=== PATIENT | male | born 1940 | race Caucasian/White ===

== ENCOUNTER → 2017-03-31 | Outpatient (CLI) | payer OTHER ==
--- NOTE | 2017-03-31 10:21 | DIAGNOSTIC IMAGING REPORT ---
RENAL ULTRASOUND HISTORY: R32 Urinary [id number] Renal mass, left latex allergyU COMPARISON: Abdominal MRI 04/01/2016. FINDINGS: Right kidney: 8.8 cm. No hydronephrosis. Multiple cysts are again noted. There are 2 similar-appearing cyst within the upper pole measuring 2.1 cm. These demonstrate septations. There is a smaller cyst within the lower pole, unchanged. Left kidney: 9.0 cm. No hydronephrosis. Normal corticomedullary differentiation and cortical thickness. The anterior interpolar exophytic lesion seen within the left kidney in the prior MRI is now well-visualized due to the prominent perinephric fat and position of the lesion. Bladder: No bladder wall thickening. The bilateral ureteral jets were identified. IMPRESSION: 1. Multiple right renal cysts. 2. The exophytic lesion/cyst within the left kidney seen on the prior MRI is not clearly identified by this modality. Electronically signed by: Kiko Ghotra M.D. 03/31/2017 10:20 AM Dictated Date/Time: 03/31/2017 10:16 AM
== END | disposition home or self-care (01) ==
LOC: C.ULTR 09:11
PROVIDERS: ATTEND Urology
DX: N28.89 Other specified disorders of kidney and ureter (principal); R32 Unspecified urinary incontinence; N28.1 Cyst of kidney, acquired